=== PATIENT | male | born 1995 | race African-American/Black ===

== ENCOUNTER 2018-02-14 21:41 | Emergency (ER) | payer SELFPAY ==
[~2018-02-14] VITALS: Ht 185.4 cm; Wt 89.5 kg
[2018-02-15 00:01] VITALS: BP 139/82
== END 2018-02-15 00:03 | disposition home or self-care (01) ==
LOC: EME 21:41
PROC: 0CQ1XZZ Repair Lower Lip, External Approach (ICD-10-PCS; principal; 2018-02-14)
DX: S01.511A Laceration without foreign body of lip, initial encounter (principal); V00.131A Fall from skateboard, initial encounter; Y93.51 Activity, roller skating (inline) and skateboarding; Z87.891 Personal history of nicotine dependence
CPT/HCPCS: 70110; 99281; 99283